=== PATIENT | male | born 1975 | race Caucasian/White ===

== ENCOUNTER 2023-02-12 09:36 | Emergency (ER) | payer BC ==
[~2023-02-12] VITALS: Ht 172.7 cm; Wt 68.0 kg
[~2023-02-12 09:36] MED LIST: CYCLOBENZAPRINE5 M3 PO; Motrin,Rufen800 MG PO
[2023-02-12 10:07] LABS: BILIRUBIN Negative (Negative); BLOOD 3+ (Negative); CLARITY Clear (Clear); COLOR Yellow (Yellow); GLUCOSE Negative (Negative); KETONE Trace (Negative); LEUKO ESTERASE Negative (Negative); NITRITE Negative (Negative); UROBILINOGEN 0.2 E.U./dl (0.0-1.0)
[2023-02-12 10:47] LABS: BACTERIA 1+; MUCOUS 2+
[2023-02-12] MEDS ORDERED: FLOMAX0.4 MG PO (11:04)
[2023-02-12] MEDS ORDERED: HYDROCODONE-AC1 EAC1 PO (11:04)
== END 2023-02-12 11:10 | disposition home or self-care (01) ==
LOC: ED 09:36
PROVIDERS: Student in an Organized Health Care Education/Training Program
DX: N20.1 Calculus of ureter (principal); Z98.890 Other specified postprocedural states

== ENCOUNTER 2024-06-23 21:59 | Emergency (ER) | payer BC ==
[~2024-06-23] VITALS: Ht 172.7 cm; Wt 58.3 kg
[~2024-06-23 21:59] MED LIST changes: +FLOMAX0.4 MG PO; +HYDROCODONE-AC1 EAC1 PO
[2024-06-23] MEDS ORDERED: Amoxicillin/Clavulanate Pota 875 MG TAB PO ONE (22:15)
[2024-06-23] MEDS ORDERED: Acetaminophen/Hydrocodone 5 MG/325 MG TABLET PO ONE (22:15)
[2024-06-23] MEDS ORDERED: Ondansetron Hydrochloride 4 MG TAB SL ONE (22:15)
[2024-06-23] MEDS ORDERED: Tdap Vaccine 0.5 ML SYR (Adult Vaccine) IM ONE (22:15)
[2024-06-23] MEDS ORDERED: AMOX-CLAV 875-1 EACH PO (23:30)
== END 2024-06-23 23:35 | disposition home or self-care (01) ==
LOC: ED 21:59
DX: S61.451A Open bite of right hand, initial encounter (principal); Z79.899 Other long term (current) drug therapy; Z98.890 Other specified postprocedural states; W54.0XXA Bitten by dog, initial encounter; Y93.89 Activity, other specified; Y92.89 Other specified places as the place of occurrence of the external cause; Y99.8 Other external cause status

== ENCOUNTER 2025-01-17 01:03 | Inpatient (IN) | payer BC ==
[~2025-01-17] VITALS: Ht 172.7 cm; Wt 56.9 kg
[2025-01-17] VITALS (7 sets, daily range): BP systolic 106–145; BP diastolic 61–83
[~2025-01-17 01:03] MED LIST changes: +AMOX-CLAV 875-1 EACH PO
[2025-01-17] MEDS ORDERED: Dexamethasone Sodium Phospha 20 MG/5 ML VIAL IM ONE (01:15)
[2025-01-17] MEDS ORDERED: MELOXICAM15 MG PO (03:07)
[2025-01-17] MEDS ORDERED: CYCLOBENZAPRINE5 M3 PO (03:07)
[2025-01-17 05:22] LABS: BUN 10 mg/dl (9-23)
[2025-01-17 05:23] LABS: SGPT/ALT < 7 U/L (5-49)
[2025-01-17 06:07] LABS: MEAN CELL VOLUME 94.7 fl (80.0-94.0); MEAN CORPUSCULAR HGB 31.4 pg (27.0-31.0); MEAN PLATELET VOLUME 9.2 fl (9.6-12.3); NUCLEATED RED BLOOD CELL 0.0 % (0.0-0.0); NUCLEATED RED BLOOD CELL 0.0 10*3/uL (0.0-0.0); PLATELET COUNT AUTOMATED 303 10*3/uL (130-400); RED CELL DISTRI WIDTH 12.7 % (0-14.5)
[2025-01-17 06:08] LABS: MANUAL DIFF REFLEX YES
[2025-01-17 06:36] LABS: PLATELET SUFFICIENCY NORMAL (NORMAL)
[2025-01-17 10:52] LABS: BILIRUBIN Negative (Negative); BLOOD Trace-Lysed (Negative); CLARITY Clear (Clear); COLOR Yellow (Yellow); KETONE Trace (Negative); LEUKO ESTERASE Negative (Negative); NITRITE Negative (Negative); PH 6.0 (4.5-8.0); SPECIFIC GRAVITY 1.025 (1.001-1.030); UROBILINOGEN 1.0 E.U./dl (0.0-1.0)
[2025-01-17 11:10] LABS: BACTERIA TRACE
[2025-01-17 11:11] LABS: WBC 0-2 wbc/hpf (0-5)
[2025-01-17] MEDS ORDERED: MG-AL HYDROXIDE/SIMETICONE 30 ML UDC PO STA (20:35)
[2025-01-17] MEDS ORDERED: Dicyclomine Hydrochloride 20 MG/10 ML OSYR PO STA (20:35)
[2025-01-18] VITALS: BP 145/74
[2025-01-18 06:17] LABS: BUN 18 mg/dl (9-23)
[2025-01-18 06:31] LABS: BASO # 0.0 10*3/uL (0.0-0.1); BASO % 0.1 % (0.0-1.0); EOS # 0.0 10*3/uL (0.0-0.4); EOS % 0.0 % (1.0-4.0); MEAN CELL VOLUME 94.2 fl (80.0-94.0); MEAN CORPUSCULAR HGB 31.1 pg (27.0-31.0); MEAN PLATELET VOLUME 9.2 fl (9.6-12.3); MONO # 0.6 10*3/uL (0.1-1.0); MONO % 3.9 % (3.0-9.0); NEUT # 14.4 10*3/uL (2.3-7.9); NEUT % 87.9 % (47.0-73.0); NUCLEATED RED BLOOD CELL 0.0 % (0.0-0.0); NUCLEATED RED BLOOD CELL 0.0 10*3/uL (0.0-0.0); PLATELET COUNT AUTOMATED 334 10*3/uL (130-400); RED CELL DISTRI WIDTH 12.4 % (0-14.5)
[2025-01-18 08:00] VITALS: BP 143/80
[2025-01-18 12:00] VITALS: BP 133/71
[2025-01-18] MEDS ORDERED: Cyclobenzaprine Hydrochlorid 10 MG TAB PO SCH (14:15)
[2025-01-18 16:00] VITALS: BP 153/72
[2025-01-18] MEDS ORDERED: MG-AL HYDROXIDE/SIMETICONE 30 ML UDC PO STA (19:54)
[2025-01-18] MEDS ORDERED: Dicyclomine Hydrochloride 20 MG/10 ML OSYR PO STA (19:54)
[2025-01-18 20:00] VITALS: BP 132/75
[2025-01-19] VITALS: BP 119/70; BP 132/75
[2025-01-19 08:00] VITALS: BP 116/66
[2025-01-19] MEDS ORDERED: PROTONIX20 MG PO (11:12)
[2025-01-19] MEDS ORDERED: PREDNISONE50 MG PO (11:12)
[2025-01-19] MEDS ORDERED: Motrin,Rufen800 MG PO (11:12)
[2025-01-19] MEDS ORDERED: CYCLOBENZAPRINE10 MG PO (11:12)
[2025-01-19] MEDS ORDERED: HYDROCODONE-AC1 EAC1 PO (11:12)
== END 2025-01-19 12:19 | disposition home or self-care (01) | DRG 552 ==
LOC: ED 01:03 → EDHOLD 03:39 → 5E 03:39
PROVIDERS: Family Medicine; Student in an Organized Health Care Education/Training Program; ADMIT Internal Medicine; ATTEND Internal Medicine
DX: M47.26 Other spondylosis with radiculopathy, lumbar region (principal); N20.1 Calculus of ureter; F17.210 Nicotine dependence, cigarettes, uncomplicated; R00.1 Bradycardia, unspecified; D72.829 Elevated white blood cell count, unspecified; R73.9 Hyperglycemia, unspecified; E87.8 Other disorders of electrolyte and fluid balance, not elsewhere classified; R31.9 Hematuria, unspecified; M62.838 Other muscle spasm; Z79.899 Other long term (current) drug therapy; Z79.01 Long term (current) use of anticoagulants; Z79.2 Long term (current) use of antibiotics; Z98.52 Vasectomy status; Z82.61 Family history of arthritis; Z71.6 Tobacco abuse counseling